=== PATIENT | male | born 1945 | race Caucasian/White ===

== ENCOUNTER 2019-03-05 04:00 | Outpatient (CLI) | payer MEDICARE, SELFPAY ==
[2019-03-05] MEDS: Inhaler, Assist Device 1 EACH MC (11:43)
[2019-03-05] MEDS: Methacholine 100 MG VIAL IH (11:43)
[2019-03-05] MEDS: Albuterol HFA 18 GM 200 PUFF INH IH (11:44)
--- NOTE | 2019-03-08 12:17 | PFT_ITS ---
PULMONARY FUNCTION TEST REPORT DATE OF SERVICE: March 05, 2019 REQUESTING PROVIDER: Jaret Townsend M.D. Spirometry shows no evidence of obstructive airways disease, no bronchodilator response. IMPRESSION: Normal spirometry. Clinical correlation recommended. ++++++++++++++++++++++++++++ METHACHOLINE CHALLENGE TEST DATE OF SERVICE: March 05, 2019 After normal spirometry, methacholine challenge testing was carried out up to a methacholine concentration of 16 mg/mL, at which point the patient had a 12% drop in FEV1. IMPRESSION: Overall negative methacholine challenge test. Clinical correlation recommended. JOAN/jim D/
== END 2019-03-05 04:20 ==
PROVIDERS: PCP Family Medicine; Visit Provider Internal Medicine Pulmonary Disease
DX: R06.02 Shortness of breath (principal); R06.09 Other forms of dyspnea
CPT/HCPCS: 94060; 95070; J7674